=== PATIENT | female | born 1995 | race Two or more races ===

== ENCOUNTER 2025-02-18 22:39 | Emergency (ER) | payer OTHER ==
[~2025-02-18] VITALS: Ht 162.6 cm; Wt 77.3 kg
[2025-02-18 22:45] VITALS: BP 129/85; PULSE 95; RESP 18; TEMP 98.2; O2SAT 100
[2025-02-18] MEDS: IBUPROFEN 600 MG TABLET PO ONE (23:46)
[2025-02-19] MEDS ORDERED: IBUP-1492 PO (00:21)
== END 2025-02-19 00:32 | disposition home or self-care (01) ==
LOC: EMS 22:39
DX: S50.11XA Contusion of right forearm, initial encounter (principal); X58.XXXA Exposure to other specified factors, initial encounter; Y93.89 Activity, other specified; Y92.89 Other specified places as the place of occurrence of the external cause; Y99.8 Other external cause status
CPT/HCPCS: 84703; 99284; 73090-TC; Z7502; Z7610